=== PATIENT | male | born 1960 ===

== ENCOUNTER 2022-04-27 17:22 | Emergency (ER) | payer OTHER ==
[~2022-04-27] VITALS: Ht 177.8 cm; Wt 115.7 kg
--- NOTE | 2022-04-27 17:51 | NUR ---
ARRIVAL PT ARRIVED AMBULATORY TO ED 2 WITH C/O REDNESS AND EDEMA IN HIS RIGHT CALF. HE HAS A HISTORY OF DVTS. VITALS TAKEN AND DR NOTIFIED.
[2022-04-27 17:52] VITALS: BP 155/102
[2022-04-27 17:56] VITALS: BP 155/102
[2022-04-27 19:25] LABS: BASOPHIL % 0.5 % (0.0-0.2); EOSINOPHIL % 0.5 % (0.0-5.0); LYMPHOCYTES # 1.19 10^3/uL1 (1.0-4.8); LYMPHOCYTES % 15.6 % (24.0-44.0); MEAN CORP HGB 30.2 pg (26-34); MONOCYTES % 13.6 % (5.0-12.0); NEUTROPHIL # 5.3 10^3/uL (1.8-7.7); NEUTROPHILS % 69.4 % (41.0-85.0); PLATELET COUNT 98 10^3/uL (150-400); RED CELL DISTRIBUTION WIDTH 14.4 % (11.5-14.5)
--- NOTE | 2022-04-27 19:35 | ER.PDOC ---
General Chief Complaint: Extremities Stated Complaint: BLOOD CLOT IN RIGHT LEG Time seen by MD: 19:34 Source: patient Exam Limitations: no limitations History of Present Illness Initial Comments Right calf redness since this morning. No fever or chills. Patient has a history of DVT and is currently on Eliquis. No pain. Onset: this morning Where: home Severity: moderate Exacerbated By: nothing Relieved By: nothing Allergies: Coded Allergies: No Known Allergies (Unverified , 04/27/22) Past Medical History Medical History: hypertension Family History Significant Family History: no pertinent family hx Social History Smoking: non-smoker Alcohol Use: occassionally Drug Use: marijuana Review of Systems Constitutional: no symptoms reported EENTM: no symptoms reported Respiratory: no symptoms reported Cardiovascular: no symptoms reported Gastrointestinal: no symptoms reported Skin: see HPI All Other Systems: Reviewed and Negative Physical Exam General Appearance: Alert, No Apparent Distress Lower Extremity: nml inspection, non-tender, no pedal edema Joint Exam: joints nml, nml ROM, nml gait/weight bearing Vascular: no vascular compromise, pulses full/equal Neuro/Psych: sensation nml, motor nml, oriented x3, CN's nml as tested, mood/affect nml Skin: warmth/erythema (and mild redness of posterior right calf) Back/Neck: nml inspection EENT: eyes inspection nml, ENT inspection nml, pharynx nml Respiratory: no resp distress, breath sounds nml CVS: reg rate & rhythm, heart sounds nml Abdomen: non-tender, no organomegaly, no bruit/mass Results/Orders Results/Orders Orders - SHIV KONG MD Cbc With Auto Diff (04/27/22 18:42) Comprehensive Metabolic Panel (04/27/22 18:42) PT (04/27/22 18:42) Partial Thromboplastin Time. (04/27/22 18:42) D-Dimer (04/27/22 18:42) Lactic Acid(Ml) (04/27/22 18:42) Us Rt Vein U/L (04/27/22 20:28) Vital Signs Date Time Temp Pulse Resp B/P (MAP) Pulse Ox O2 Delivery O2 Flow Rate FiO2 04/27/22 17:56 98.6 105 18 155/102 (119) 96 Room Air* 0 21 04/27/22 17:52 98.6 105 18 96 04/27/22 17:52 98.6 105 18 04/27/22 17:52 98.6 105 18 155/102 (119) 96 Room Air* 0 21 Laboratory Tests Test 04/27/22 19:00 White Blood Count 7.7 10^3/uL (4.5-11.0) Red Blood Count 5.79 10^6/uL (4.50-5.90) Hemoglobin 17.5 g/dL (13.9-16.3) H Hematocrit 51.9 % (37.0-53.0) Mean Corpuscular Volume 89.6 fL (78-100) Mean Corpuscular Hemoglobin 30.2 pg (26-34) Mean Corpuscular Hemoglobin Concent 33.7 g/dL (33-36.5) Red Cell Distribution Width 14.4 % (11.5-14.5) Platelet Count 98 10^3/uL (150-400) L Mean Platelet Volume 10.4 fL (7.8-11.0) Neutrophils (%) (Auto) 69.4 % (41.0-85.0) Lymphocytes (%) (Auto) 15.6 % (24.0-44.0) L Monocytes (%) (Auto) 13.6 % (5.0-12.0) H Neutrophils # (Auto) 5.3 10^3/uL (1.8-7.7) Lymphocytes # (Auto) 1.19 10^3/uL1 (1.0-4.8) Monocytes # (Auto) 1.0 10^3/uL (0.3-0.8) H Absolute Immature Granulocyte (auto 0.03 10^3 u/L (0-2) Absolute Eosinophils (auto) 0.0 10^3/uL (0.0-0.2) Immature Granulocytes % 0.40 % (0.00-0.50) Eosinophils % 0.5 % (0.0-5.0) Basophils % 0.5 % (0.0-0.2) H Basophils # 0.0 10^3/uL (0.0-0.1) Blood Morphology Comment Prothrombin Time 11.4 SEC (9.1-11.5) Prothrombin Time INR (Non-Therap) 1.1 Activated Partial Thromboplast Time 28.6 SEC (22.5-33.1) D-Dimer 2.51 mg/L (0.19-0.49) *H Sodium Level 133 mmol/L (132-145) Potassium Level 3.7 mmol/L (3.6-5.2) Chloride Level 98.0 mmol/L (96-109) Carbon Dioxide Level 25.9 mmol/L (20.0-32) Anion Gap 12.8 Blood Urea Nitrogen 13 mg/dL (7-18) Creatinine 1.00 mg/dL (0.59-1.40) Estimated GFR () 92.2 (>/=60) Est GFR (CKD-EPI)(Non-Afr Czech) 76.2 (>/=60) BUN/Creatinine Ratio 13.0 Glucose Level 172 mg/dL (70-110) H Lactic Acid Level 1.2 mmol/L (0.5-1.9) Calcium Level 8.9 mg/dL (8.4-10.5) Total Bilirubin 0.8 mg/dL (0.2-1.0) Aspartate Amino Transferase (AST) 20 U/L (0-35) Alanine Aminotransferase (ALT) 19 U/L (12-78) Alkaline Phosphatase 108 U/L (50-136) Total Protein 7.9 g/dL (6.4-8.2) Albumin 3.5 g/dL (3.4-5.0) Globulin 4.4 Albumin/Globulin Ratio 0.795 Progress Progress Right lower extremity venous Doppler is normal. Chemistry show glucose of 172, rest of chemistry is normal. WBC is normal but platelet count 98. Patient aware of this and will need to follow-up with his PCP. He received Keflex and is ready to go home. ER DEPART Departure Time of Disposition: 23:02 Disposition: 01 HOME / SELF CARE / HOMELESS Impression: Primary Impression: Cellulitis Condition: Improved Referrals: VERONICA SINGH (PCP) PRIMARY CARE PROVIDER Additional Instructions: Keflex Follow-up with your PCP in 5 to 7 days Return to ED if worsening or concerns Duration or Time Spent with Pa: 60 min Problem Qualifiers Primary Impression: Cellulitis Site of cellulitis: extremity Site of cellulitis of extremity: lower extremity Laterality: right Qualified Codes: L03.115 - Cellulitis of right lower limb SHIV KONG MD Apr 27, 2022 19:35
[2022-04-27 20:03] LABS: CARBON DIOXIDE 25.9 mmol/L (20.0-32)
--- NOTE | 2022-04-27 22:57 | DIREP ---
PROCEDURE:US DUPLEX EXTREM VEINS UNILATER/LIMITED-RT COMPARISON:None. INDICATIONS:Calf redness TECHNIQUE:The right lower extremity was evaluated utilizing holt scale images with segmental compression, color Doppler, and spectral Doppler with respiratory variation and augmentation. FINDINGS: External iliac vein: Patent Common femoral vein:Patent Profunda femoris vein: Patent Superficial femoral vein:Patent Popliteal vein:Patent Posterior tibial vein:Patent Peroneal vein: Patent Anterior tibial vein:Patent Greater saphenous vein:Patent Waveforms: Within normal limits. CONCLUSION: 1. Normal right lower extremity venous sonography with no deep vein thrombosis. Dictated by: Jimmy Mae M.D. on 04/27/2022 at 10:54 PM
[2022-04-27] MEDS ORDERED: KEFLEX PO STA (23:00)
[2022-04-27 23:10] VITALS: BP 153/61
[2022-04-27] MEDS ORDERED: KEFLEX PO ONE (23:10)
== END 2022-04-27 23:11 | disposition home or self-care (01) ==
LOC: ER 17:28
DX: L03.115 Cellulitis of right lower limb (principal); I10 Essential (primary) hypertension; F12.90 Cannabis use, unspecified, uncomplicated; Z86.718 Personal history of other venous thrombosis and embolism; Z79.01 Long term (current) use of anticoagulants
CPT/HCPCS: 36415; 80053; 83605; 85025; 85379; 85610; 85730; 99284; 93971